=== PATIENT | male | born 1965 | race Hispanic/Latino ===

== ENCOUNTER 2018-03-25 12:07 | Emergency (ER) | payer OTHER, BC ==
[~2018-03-25] VITALS: Ht 167.6 cm; Wt 91.4 kg
[~2018-03-25 12:07] MED LIST: DONNATAL1 TABLET PO
[2018-03-25 15:54] VITALS: BP 123/87
== END 2018-03-25 15:55 | disposition home or self-care (01) ==
LOC: EME 12:07
DX: S00.93XA Contusion of unspecified part of head, initial encounter (principal); S06.0X0A Concussion without loss of consciousness, initial encounter; S16.1XXA Strain of muscle, fascia and tendon at neck level, initial encounter; V49.40XA Driver injured in collision with unspecified motor vehicles in traffic accident, initial encounter; Y92.411 Interstate highway as the place of occurrence of the external cause; M25.78 Osteophyte, vertebrae
CPT/HCPCS: 70450; 72125; 99281; 99284